=== PATIENT | female | born 1970 | race Caucasian/White ===

== ENCOUNTER → 2022-01-06 | Day surgery (SDC) | payer OTHER ==
[2022-01-01 15:50] LABS: BASOPHILS # (AUTO) 0.1 (0.0-0.1); BASOPHILS % 1.3 % (0.0-1.0); EOSINOPHILS # (AUTO) 0.2 (0.0-0.4); EOSINOPHILS % 2.6 % (0.0-6.0); HEMOGLOBIN 13.3 g/dL (12.0-16.0); LYMPHOCYTES # (AUTO) 2.8 (1.0-3.2); MEAN CORPUSCULAR HEMOGLOBIN 31.5 pg (28-32); MEAN CORPUSCULAR HGB CONC 32.4 g/dL (31-35); MEAN CORPUSCULAR VOLUME 97.2 fL (81-99); MONOCYTES # (AUTO) 0.7 (0.2-0.8); NEUTROPHILS # (AUTO) 3.4 (2.1-6.9); NEUTROPHILS % 47.8 % (38.7-80.0); PLATELET COUNT 318 x10e3/uL (140-360); RED BLOOD COUNT 4.22 x10e6/uL (3.6-5.1); RED CELL DISTRIBUTION WIDTH 11.8 % (11.7-14.4)
[~2022-01-06] MED LIST: BENADRYL25 M1 PO; CALCIUM + VITA1 EACH PO; ESTROGEN PATCH TOP; FISH OIL 1,001000 M1 PO; LEVOTHYROXINE100 MC1 PO; MAGNESIUM PO; MEPERIDINE HCL INJ 25 MG/ML VIAL ONE; PROGESTERONE200 MG PO; SCOPOLAMINE 1 MG PATCH ONE
[2022-01-06 11:25] VITALS: BP 106/78
== END | disposition home or self-care (01) ==
LOC: OR 08:07
PROVIDERS: ATTEND Orthopaedic Surgery
DX: M75.111 Incomplete rotator cuff tear or rupture of right shoulder, not specified as traumatic (principal); S43.431D Superior glenoid labrum lesion of right shoulder, subsequent encounter; M75.41 Impingement syndrome of right shoulder; Z01.810 Encounter for preprocedural cardiovascular examination; Z01.812 Encounter for preprocedural laboratory examination
CPT/HCPCS: 29823; 29826; 29827; 36415; 81025; 85025; 93005; C1713 ×2; J0690; J2175